=== PATIENT | male | born 1980 | race Caucasian/White ===

== ENCOUNTER 2017-10-25 22:37 | Emergency (ER) | payer OTHER ==
--- NOTE | 2017-10-26 00:33 | ER Document Report ---
ED Extremity Problem, Lower - General Mode of Arrival: Ambulatory Information source: Patient TRAVEL OUTSIDE OF THE [place] IN LAST 30 DAYS: No - HPI Patient complains to provider of: Pain, Swelling, Other - Infection to the left foot Location: Foot - Left Occurred: Other - 4 days Where: Outdoors Onset/Duration: Gradual, Worse Quality of pain: Achy, Pressure, Sharp, Throbbing Severity: Moderate Pain Level: 3 Context: Other - States he walked until he formed a blister which then popped and has become infected Recent injury: No Associated symptoms: Painful ambulation Exacerbated by: Hanging down, Movement, Walking Relieved by: Nothing <GUY AVILEZ - Last Filed: 10/26/17 00:28> <YOLA DE LOS SANTOS - Last Filed: 10/26/17 02:12> - General Chief Complaint: Foot Pain Stated Complaint: FOOT BLISTER Time Seen by Provider: 10/26/17 00:19 Notes: 37-year-old male presents to ED for an infected wound to the bottom of his left foot. He states that he walks a lot due to his PTSD it helps to calm him down. He states that about 4 days ago he got some blisters which popped 3 days ago and his foot has developed redness swelling and pain to the area where the blister was. He now has redness and swelling up to his ankle. Patient is alert and oriented respirations regular and unlabored speaking with a even full sentences but walks with a limp due to the pain in his left foot. (GUY AVILEZ) - Related Data Allergies/Adverse Reactions: tramadol [Tramadol] Allergy (Verified 09/26/13 15:30) Past Medical History - General Information source: Patient - Social History Smoking Status: Current Every Day Smoker Cigarette use (# per day): Yes - Black and mild Chew tobacco use (# tins/day): No Smoking Education Provided: Yes - 4 minutes Frequency of alcohol use: None Drug Abuse: Marijuana Occupation: None Lives with: Family Family History: Reviewed & Not Pertinent Patient has suicidal ideation: No Patient has homicidal ideation: No - Past Medical History Cardiac Medical History: Reports: None Pulmonary Medical History: Reports: None EENT Medical History: Reports: None Neurological Medical History: Reports: None Endocrine Medical History: Reports: None Renal/ Medical History: Reports: None Malignancy Medical History: Reports None GI Medical History: Reports: None Musculoskeletal Medical History: Reports Hx Arthritis, Reports Hx Musculoskeletal Deformity, Reports Hx Musculoskeletal Trauma Skin Medical History: Reports None Psychiatric Medical History: Reports: Hx Post Traumatic Stress Disorder Traumatic Medical History: Reports: None Infectious Medical History: Reports: None Past Surgical History: Reports: Hx Orthopedic Surgery - Lumbar fusion due to degenerative disc and arthritis - Immunizations Hx Diphtheria, Pertussis, Tetanus Vaccination: Yes <GUY AVILEZ - Last Filed: 10/26/17 00:28> Review of Systems - Review of Systems Constitutional: No symptoms reported EENT: No symptoms reported Cardiovascular: No symptoms reported Respiratory: No symptoms reported Gastrointestinal: No symptoms reported Genitourinary: No symptoms reported Male Genitourinary: No symptoms reported Musculoskeletal: Other - Left foot Skin: Other - Erythema swelling and opening wound to left foot Hematologic/Lymphatic: No symptoms reported Neurological/Psychological: No symptoms reported -: Yes All other systems reviewed and negative <GUY AVILEZ - Last Filed: 10/26/17 00:28> Physical Exam - Vital signs Interpretation: Normal - General General appearance: Appears well, Alert - HEENT Head: Normocephalic, Atraumatic Eyes: Normal Pupils: PERRL - Respiratory Respiratory status: No respiratory distress Chest status: Nontender Breath sounds: Normal Chest palpation: Normal - Cardiovascular Rhythm: Regular Heart sounds: Normal auscultation Murmur: No - Abdominal Inspection: Normal Distension: No distension Bowel sounds: Normal Tenderness: Nontender Organomegaly: No organomegaly - Back Back: Normal, Nontender - Extremities General upper extremity: Normal inspection, Nontender, Normal color, Normal ROM , Normal temperature General lower extremity: Normal weight bearing. No: Eulogio's sign Foot: Tender, Edema, Metatarsal compress. pain, No evidence of FB, Other - Open infected wound to the plantar surface of the front of his left foot with redness up to the ankle swelling - Neurological Neuro grossly intact: Yes Cognition: Normal Orientation: AAOx4 Newman Coma Scale Eye Opening: Spontaneous Newman Coma Scale Verbal: Oriented Newman Coma Scale Motor: Obeys Commands Newman Coma Scale Total: 15 Speech: Normal Motor strength normal: LUE, RUE, LLE, RLE Sensory: Normal - Psychological Associated symptoms: Normal affect, Normal mood - Skin Skin Temperature: Warm Skin Moisture: Dry Skin Color: Normal <GUY AVILEZ - Last Filed: 10/26/17 00:28> - Vital signs Vitals: Temp Pulse Resp BP Pulse Ox 98.8 F 75 18 133/78 H 98 10/25/17 22:51 10/25/17 22:51 10/25/17 22:51 10/25/17 22:51 10/25/17 22:51 Course <GUY AVILEZ - Last Filed: 10/26/17 00:28> - Laboratory Result Diagrams: 10/26/17 00:45 10/26/17 00:45 <YOLA DE LOS SANTOS - Last Filed: 10/26/17 02:12> - Re-evaluation Re-evalutation: 10/26/17 02:10 Patient was initially seen by the nurse practitioner, Archana Avilez. She has been completed the patient's foot. Patient has a large blister on the base of his foot. He has PTSD and walks around a lot. Because this developed a blister on his foot and it popped. He does have some mild erythema around it. This could be inflammation or could be a mild secondary infection. Will place on doxycycline. I will have him do dressing changes twice a day with nonstick bandages. We will give him crutches so does not walk or put any pressure on the base of his foot. I informed the need to follow-up on Saturday or Saturday with his doctor for reevaluation. If he is unable to see his doctor then he needs to return to the ER for reevaluation. Patient agrees with plan will be discharged home. Patient to return to ER if he has spreading redness in his foot, increasing with a depth of the ulcer, or if he has concerns it is worsening. Dictation of this chart was performed using voice recognition software; therefore, there may be some unintended grammatical errors. (YOLA DE LOS SANTOS) - Vital Signs Vital signs: Temp Pulse Resp BP Pulse Ox 98.8 F 75 18 133/78 H 98 10/25/17 22:51 10/25/17 22:51 10/25/17 22:51 10/25/17 22:51 10/25/17 22:51 - Laboratory Laboratory results interpreted by me: 10/26/17 10/26/17 00:45 00:45 ESR 37 H Sodium 147.1 H C-Reactive Protein 19.0 H Total Protein 8.6 H
[2017-10-26 01:03] LABS: ABSOLUTE BASOPHILS # (AUTO) 0.1 10^3/uL (0.0-0.2); ABSOLUTE EOSINOPHILS # (AUTO) 0.1 10^3/uL (0.0-0.6); ABSOLUTE LYMPHOCYTES (AUTO) 1.5 10^3/uL (0.5-4.7); ABSOLUTE MONOCYTES (AUTO) 0.9 10^3/uL (0.1-1.4); ABSOLUTE NEUT (AUTO) 5.8 10^3/uL (1.7-8.2); BASOPHILS % (AUTO) 0.9 % (0-2); EOSINOPHILS % (AUTO) 1.2 % (0-6); HEMATOCRIT 38.8 % (37.9-51.0); HEMOGLOBIN 13.5 g/dL (13.5-17.0); LYMPHOCYTES % (AUTO) 18.2 % (13-45); MEAN CORPUSCULAR HEMOGLOBIN 29.5 pg (27.0-33.4); MEAN CORPUSCULAR HGB CONC 34.7 g/dL (32.0-36.0); MEAN CORPUSCULAR VOLUME 85 fl (80-97); MONOCYTES % (AUTO) 10.7 % (3-13); PLATELET COUNT 213 10^3/uL (150-450); RED BLOOD COUNT 4.56 10^6/uL (4.35-5.55); RED CELL DISTRIBUTION WIDTH 13.3 % (11.5-14.0); TOTAL CELLS COUNTED % (AUTO) 100 %; WHITE BLOOD COUNT 8.4 10^3/uL (4.0-10.5)
[2017-10-26 01:18] LABS: ALANINE AMINOTRANSFERASE 35 U/L (21-72); ALBUMIN 4.7 g/dL (3.5-5.0); ALKALINE PHOSPHATASE 68 U/L (38-126); ANION GAP 16 (5-19); ASPARTATE AMINO TRANSFERASE 54 U/L (17-59); BILIRUBIN,DIRECT 0.3 mg/dL (0.0-0.4); BILIRUBIN,TOTAL 0.6 mg/dL (0.2-1.3); BLOOD UREA NITROGEN 15 mg/dL (7-20); CALCIUM 9.6 mg/dL (8.4-10.2); CARBON DIOXIDE 27 mmol/L (22-30); CHLORIDE 104 mmol/L (98-107); GLUCOSE 90 mg/dL (75-110); POTASSIUM 3.6 mmol/L (3.6-5.0); SODIUM 147.1 mmol/L (137-145); TOTAL PROTEIN 8.6 g/dL (6.3-8.2)
[2017-10-26 01:44] LABS: ERYTHROCYTE SEDIMENTATION RATE 37 mm/hr (0-15)
--- NOTE | 2017-10-26 02:17 | RADIOLOGY REPORT (SQ) ---
EXAM DESCRIPTION: XR FOOT 3 OR MORE VIEWS COMPLETED DATE/TME: 10/26/2017 00:26 CLINICAL HISTORY: 37 years, Male, infected wound to bottom of foot COMPARISON: None. FINDINGS: 3 views of the left foot. No acute fracture or dislocation. Normal osseous mineralization. No radiopaque foreign body. IMPRESSION: No acute fracture or dislocation. 2010 [employer] [facility] [employer]- All Rights Reserved
[2017-10-26] MEDS ORDERED: DOXYCYCLINE HYCLATE 100 MG TABLET PO ONE (02:20)
[2017-10-26] MEDS ORDERED: HYDROCODONE/ACETAMINOPHEN 5-325 MG (6 TAB/ER DISP) PO PRN (02:23)
[2017-10-26 02:43] VITALS: BP 121/68
== END 2017-10-26 02:44 | disposition home or self-care (01) ==
LOC: ER 22:37
DX: S90.822A Blister (nonthermal), left foot, initial encounter (principal); M79.672 Pain in left foot; M79.89 Other specified soft tissue disorders; L08.9 Local infection of the skin and subcutaneous tissue, unspecified; X58.XXXA Exposure to other specified factors, initial encounter; Y93.01 Activity, walking, marching and hiking; F17.200 Nicotine dependence, unspecified, uncomplicated
CPT/HCPCS: 36415; 80053; 85025; 85652; 86140; 87040; 87077; 87186; 99284; 99406

== ENCOUNTER 2019-01-21 19:05 | Emergency (ER) | payer OTHER ==
[2019-01-21 19:33] VITALS: BP 150/99
[2019-01-21] MEDS ORDERED: PENICILLIN V POTASSIUM 500 MG TABLET PO ONE (19:51)
[2019-01-21] MEDS ORDERED: LIDOCAINE 2% VISCOUS SOLN 20 ML UDCUP PO ONE (19:51)
--- NOTE | 2019-01-21 19:52 | ER Document Report ---
HPI - HPI Time Seen by Provider: 01/21/19 19:44 Pain Level: 5 Context: Patient is a 38-year-old male who presents the emergency department with a chief complaint of tooth pain. He has pain to tooth #18. He has an appointment with his dentist in 6 days. He states that the tooth had cracked about a week ago and he has had pain about 3 days ago. Denies any fever, body aches, chills, or any other symptoms at this time. Denies any purulent drainage from the area. - CONSTITUTIONAL Constitutional: DENIES: Fever, Chills - EENT EENT: REPORTS: Congestion, Eye problems. DENIES: Sore Throat, Ear Pain, Nasal Drainage-Purulent Notes: tooth pain; cracked tooth - NEURO Neurology: DENIES: Headache - RESPIRATORY Respiratory: REPORTS: Trouble Breathing. DENIES: Coughing - GASTROINTESTINAL Gastrointestinal: DENIES: Nausea, Patient vomiting - DERM Skin Color: Normal Skin Problems: None Past Medical History - Social History Smoking Status: Current Every Day Smoker Chew tobacco use (# tins/day): No Frequency of alcohol use: None Drug Abuse: None Family History: Reviewed & Not Pertinent Patient has suicidal ideation: No Patient has homicidal ideation: No Renal/ Medical History: Denies: Hx Peritoneal Dialysis Musculoskeletal Medical History: Reports Hx Arthritis, Reports Hx Musculoskeletal Deformity, Reports Hx Musculoskeletal Trauma Psychiatric Medical History: Reports: Hx Post Traumatic Stress Disorder Past Surgical History: Reports: Hx Orthopedic Surgery - Lumbar fusion due to degenerative disc and arthritis - Immunizations Hx Diphtheria, Pertussis, Tetanus Vaccination: Yes Vertical Provider Document - CONSTITUTIONAL Agree With Documented VS: Yes Exam Limitations: No Limitations General Appearance: No Apparent Distress - INFECTION CONTROL TRAVEL OUTSIDE OF THE [place] IN LAST 30 DAYS: No - HEENT HEENT: Atraumatic, Normal ENT Exam Mouth Diagram: 1 - poor dentition. Dental caries noted to entire area. No abscess noted. - RESPIRATORY Respiratory: No Respiratory Distress - CARDIOVASCULAR Cardiovascular: Regular Rate, Regular Rhythm Pulses: Normal: Radial - MUSCULOSKELETAL/EXTREMETIES Musculoskeletal/Extremeties: FROM - NEURO Level of Consciousness: Awake, Alert, Appropriate Motor/Sensory: No Motor Deficit - DERM Integumentary: Warm, Dry, No Rash Course - Re-evaluation Re-evalutation: 01/21/19 19:50 Patient's physical exam and history is most consistent with a infected tooth. Patient is able to swallow, no facial swelling noted, airway is patent, vital signs are normal. I do not suspect Layo's angina, peritonsilar abscess, or airway obstruction. The patient will be started on oral antibiotics. I have given the patient education on their antibiotics. Patient was given i nstructions to follow-up with a dentist this week. Return precautions were given. Verbal discharge instructions were given. Patient verbalized understanding. Patient is stable for discharge. - Vital Signs Vital signs: Temp Pulse Resp BP Pulse Ox 98.1 F 74 11 L 150/99 H 98 01/21/19 19:32 01/21/19 19:32 01/21/19 19:32 01/21/19 19:32 01/21/19 19:32 Discharge - Discharge Clinical Impression: Tooth pain Condition: Stable Disposition: HOME, SELF-CARE Instructions: Penicillin V K ([facility]), Toothache ([facility]) Additional Instructions: You have been seen in the emergency department for a toothache. You may take ibuprofen 600 mg and Tylenol 1000 mg every 6 hours as needed for the pain. You have also been given topical lidocaine. Placed that to the affected tooth as needed to help with pain. You have also been prescribed antibiotics. Please take the antibiotics as prescribed, even if you start to feel better. If you develop a fever greater than 100.4 F, or have any symptoms that are worrisome to you, please return to the emergency department. Please follow-up with a dentist this week in regards to your visit. Prescriptions: Penicillin V Potassium [Penicillin Vk 500 mg Tablet] 500 mg PO QID #40 tablet
== END 2019-01-21 20:16 | disposition home or self-care (01) ==
LOC: ER 19:05
DX: K08.9 Disorder of teeth and supporting structures, unspecified (principal); F17.200 Nicotine dependence, unspecified, uncomplicated; Z98.1 Arthrodesis status
CPT/HCPCS: 99282; J3490